=== PATIENT | male | born 1985 | race Two or more races ===

== ENCOUNTER 2019-02-26 20:40 | Emergency (ER) | payer SELFPAY ==
[2019-02-27] MEDS ORDERED: LIDOCAINE 1% PF 2 ML VIAL. ONE (02:37)
[2019-02-27] MEDS ORDERED: TRAM50TA PO (03:22)
--- NOTE | 2019-02-27 03:23 | PHYS DOC ---
Adult General Chief Complaint Chief Complaint: LACERATION/AVULSION HPI HPI Patient is a 33-year-old male who presents with laceration to his left index finger. Patient had been opening a can and cut the dorsal aspect of his finger on the sharp edge of the can. Patient states that he splinted his finger in extension because the distal joint remained in flexion. He does report to some numbness to the tip of the finger. He rates the pain as being mild. Review of Systems Review of Systems Constitutional: Denies fever or chills [] Respiratory: Denies cough or shortness of breath [] Cardiovascular: No additional information not addressed in HPI [] Musculoskeletal: Positive finger pain [] Integument: +1.5 cm laceration, dorsal aspect of left index finger[] Current Medications Current Medications Current Medications Medications (Trade) Dose Ordered Sig/Nedra Start Time Stop Time Status Last Admin Dose Admin Diphtheria/ Tetanus/Acell Pertussis (Boostrix) 0.5 ml ONCE ONCE 02/27/19 04:00 02/27/19 04:00 DC 02/27/19 03:30 0.5 ML Lidocaine HCl (Xylocaine-Mpf 1% 2ml Vial) 2 ml STK-MED ONCE 02/27/19 02:37 02/27/19 02:38 DC Tramadol HCl (Ultram) 50 mg 1X ONCE 02/27/19 04:00 02/27/19 04:00 DC 02/27/19 03:30 50 MG Allergies Allergies Allergies Coded Allergies Type Severity Reaction Last Updated Verified No Known Drug Allergies 02/27/19 No Physical Exam Physical Exam Constitutional: Well developed, well nourished, no acute distress, non-toxic appearance. [] Cardiovascular:Heart rate regular rhythm, no murmur [] Lungs & Thorax: Bilateral breath sounds clear to auscultation [] Skin: There is a 1.5 cm laceration noted to the dorsal aspect of the left index finger at the distal interphalangeal joint. There is unopposed flexion at the DIP indicative of extensor tendon laceration. Laceration extends into muscle with no foreign body identified. Margins are sharp. [] Extremities: No cyanosis, no clubbing, loss of extension at the distal interphalangeal joint of left index finger. [] Current Patient Data Vital Signs Vital Signs Date Time Temp Pulse Resp B/P (MAP) Pulse Ox O2 Delivery O2 Flow Rate FiO2 02/27/19 03:30 18 98 Room Air EKG EKG [] Radiology/Procedures Radiology/Procedures [] Course & Med Decision Making Course & Med Decision Making Pertinent Labs and Imaging studies reviewed. (See chart for details) Laceration Repair by me: Anesthesia: 1% lidocaine locally Location: Dorsal aspect of left index finger at the DIP Tendon/Joint/Nerves: There is tendon deficit noted at the distal interphalangeal joint Foreign body: None detected after copious irrigation and exploration Technique: 5 Simple Interrupted Sutures utilizing 4-0 Prolene suture Complexity: No subcutaneous sutures/mucosal repair/edge excision Post Closure Length: 1.5 cm Patient's bleeding was easily controlled in the department and there is no indication of anemia. No evidence of compartment syndrome, neurologic injury, vascular injury, open joint, tendon laceration, or foreign body. Patient is appropriate for outpatient follow up. 48 hour wound check. Scar minimization instructions given. Dragon Disclaimer Dragon Disclaimer This electronic medical record was generated, in whole or in part, using a voice recognition dictation system. Departure Departure Impression: Primary Impression: Finger laceration involving tendon Disposition: 01 HOME, SELF-CARE Condition: STABLE Referrals: NO PCP (PCP) Patient Instructions: Laceration Care, Adult Additional Instructions: I would recommend outpatient follow-up with hand surgeon for further evaluation of tendon laceration. I Scripts Tramadol Hcl (TRAMADOL HCL) 50 Mg Tablet 50 MG PO Q6HRS PRN for PAIN, #10 TAB Prov: VALENTE TRACEY Jr. DO 02/27/19 Problem Qualifiers Primary Impression: Finger laceration involving tendon Encounter type: initial encounter Qualified Codes: S61.219A - Laceration without foreign body of unspecified finger without damage to nail, initial encounter VALENTE TRACEY Jr. DO Feb 27, 2019 03:23
[2019-02-27] MEDS ORDERED: DIPHTH,PERTUSS(ACELL),TET TOX 0.5 ML DISP.SYRIN. VAX IM ONE (04:00)
[2019-02-27] MEDS ORDERED: traMADol 50 MG TABLET PO ONE (04:00)
== END 2019-02-27 03:45 | disposition home or self-care (01) ==
LOC: ER 20:40
DX: S61.211A Laceration without foreign body of left index finger without damage to nail, initial encounter (principal); W26.8XXA Contact with other sharp object(s), not elsewhere classified, initial encounter; Y93.89 Activity, other specified; Y92.89 Other specified places as the place of occurrence of the external cause; Y99.8 Other external cause status
CPT/HCPCS: 12001; 90471; 90715; 99283

== ENCOUNTER 2019-03-08 08:23 | Emergency (ER) | payer SELFPAY ==
[~2019-03-08] VITALS: Ht 170.2 cm; Wt 81.6 kg
[~2019-03-08 08:23] MED LIST: TRAM50TA PO
[2019-03-08 08:28] VITALS: BP 121/67
--- NOTE | 2019-03-08 08:35 | PHYS DOC ---
Adult General Chief Complaint Chief Complaint: SUTURE/STAPLE REMOVAL [facility] HPI Patient is a 33 year old male who presents suture removal. Patient had suturing of left index finger 8 days ago in this ER without complaining of pain or discharge. Patient is up-to-date with tetanus summarization. Review of Systems Review of Systems Constitutional: Denies fever or chills [] Eyes: Denies change in visual acuity, redness, or eye pain [] HENT: Denies nasal congestion or sore throat [] Respiratory: Denies cough or shortness of breath [] Cardiovascular: No additional information not addressed in HPI [] GI: Denies abdominal pain, nausea, vomiting, bloody stools or diarrhea [] : Denies dysuria or hematuria [] Musculoskeletal: Denies back pain or joint pain [] Integument: Denies rash or skin lesions [] Neurologic: Denies headache, focal weakness or sensory changes [] Endocrine: Denies polyuria or polydipsia [] All other systems were reviewed and found to be within normal limits, except as documented in this note. Allergies Allergies Allergies Coded Allergies Type Severity Reaction Last Updated Verified No Known Drug Allergies 02/27/19 No Physical Exam Physical Exam Constitutional: Well developed, well nourished, no acute distress, non-toxic appearance. [] HENT: Normocephalic, atraumatic Eyes: PERRLA, EOMI, conjunctiva normal, no discharge. [] Neck: Normal range of motion, no tenderness, supple, no stridor. [] Cardiovascular:Heart rate regular rhythm, no murmur [] Lungs & Thorax: Bilateral breath sounds clear to auscultation [] Skin: Warm, dry, no erythema, no rash. [] Extremities: Left index finger healed wound in distal phalanx ,No tenderness, no cyanosis, no clubbing, ROM intact, no edema. [] Neurologic: Alert and oriented X 3, normal motor function, normal sensory func tion, no focal deficits noted. [] Psychologic: Affect normal, judgement normal, mood normal. [] Current Patient Data Vital Signs Vital Signs Date Time Temp Pulse Resp B/P (MAP) Pulse Ox O2 Delivery O2 Flow Rate FiO2 03/08/19 08:28 98.4 69 16 121/67 (85) 100 Room Air 98.4 EKG EKG [] Radiology/Procedures Radiology/Procedures [] Course & Med Decision Making Course & Med Decision Making 5 suture from the left index finger was removed without problem. Dragon Disclaimer Dragon Disclaimer This electronic medical record was generated, in whole or in part, using a voice recognition dictation system. Departure Departure Impression: Primary Impression: Encounter for removal of sutures Disposition: HOME, SELF-CARE (at 0 [phone]) Condition: STABLE Referrals: NO PCP (PCP) Patient Instructions: Suture Removal ALIDA COLEY MD Mar 08, 2019 08:35
== END 2019-03-08 08:43 | disposition home or self-care (01) ==
LOC: ER 08:23
DX: S61.211D Laceration without foreign body of left index finger without damage to nail, subsequent encounter (principal); X58.XXXD Exposure to other specified factors, subsequent encounter
CPT/HCPCS: 99281